=== PATIENT | female | born 1945 | race Caucasian/White ===

== ENCOUNTER 2017-12-25 01:25 | Inpatient (IN) | payer OTHER ==
[~2017-12-25] VITALS: Ht 149.9 cm; Wt 53.8 kg
[2017-12-25] MEDS ORDERED: NEXIUM40 M1 PO (08:49)
[2017-12-25] MEDS ORDERED: RANITIDINE HCL300 M1 PO (08:49)
[2017-12-25] MEDS ORDERED: LOVASTATIN20 M1 PO (08:56)
--- NOTE | 2017-12-25 12:36 | Operative Report ---
Operative/Inv Procedure Report Surgery Date: 12/25/17 Name of Procedure: Right total hip replacement Pre-Operative Diagnosis: Primary right hip DJD Post-Operative Diagnosis: Same Estimated Blood Loss: 250 Surgeon/Forensic Chemist: Ada REYES,Gianluca Moulton Anesthesia: block Operative/Procedure Note Note: Description of Procedure: The patient was taken to the operating room and positively identified. After induction of spinal anesthesia and administration of appropriate pre-operative antibiotics, the patient was positioned supine on the operating room table and all bony prominences were well padded. After performing a surgical timeout, the right lower extremity was prepped and draped in the usual sterile fashion. A direct anterior approach was made to the right hip. The incision was carried sharply through superficial soft tissues to the level of the fascia. Meticulous hemostasis was maintained with Bovie electocautery. The fascia over the tensor fascia era muscle was opened sharply and the interval between the TFL and the sartorius was entered bluntly taking care to stay lateral to the lateral femoral cutaneous nerve. Retractors were placed around the femoral neck and the pericapsular fat was identified. The ascending branches of the lateral femoral circumflex vessels were identified and carefully coagulated. The pericapsular fat and anterior capsule were then resected. A napkin ring osteotomy was performed and the femoral head was removed without difficulty. Attention was then turned to the acetabulum. After appropriate placement of retractors, the acetabulum was exposed. Soft tissue was cleaned from the acetabular margin and notch. Overhanging osteophytes were removed and the teardrop was exposed. The acetabulum was then sequentially reamed to accept a 50 mm Rosamaria Tritanium hemispherical solid shell. This was impacted into place in the appropriate position and fitted with a 32 mm Trident X3 zero degree polyethylene insert. Attention was then turned to the femur. After performing the appropriate ligament releases, the proximal femur was exposed. It was then sequentially broached to accept a size 3 [place] Accolade II stem. This was trialed for leg length and stability. The trial component was removed and the final component was impacted into place. The trunnion was carefully cleaned and fit with a 32mm , +0 Biolox delta ceramic femoral head. The hip was reduced and put through a full range of motion and found to be stable. The articular space was then irrigated with sterile saline. The periarticular soft tissues were infilitrated with Marcaine. The fascial layer was closed with interrupted #1 vicryl suture and the skin was re-approximated with interrupted 2 -0 vicryl. The skin was closed with a running 3-0 V-Lock suture. Steri-strips and a sterile dressing were applied. The patient was awakened and taken to the recovery room in satisfactory condition.
[2017-12-25] MEDS ORDERED: DILAUDID2 M1 PO (13:32)
[2017-12-25] MEDS ORDERED: MS CONTIN15 M3 PO (13:32)
[2017-12-25] MEDS ORDERED: COLACE100 M1 PO (13:32)
[2017-12-25] MEDS ORDERED: ASPIRIN EC325 M2 PO (13:32)
[2017-12-25] MEDS ORDERED: MIRALAX17 G1 PO (13:32)
--- NOTE | 2017-12-25 13:37 | Patient Discharge Instructions ---
Discharge Instructions General Discharge Information You were seen/treated for: Right hip pain related to unilateral primary osteoarthritis You had these procedures: Right total hip replacement Watch for these problems: Increasing pain despite the use of pain medication Increasing redness, warmth or swelling Drainage of any type from incision Inability to bear weight on operative leg Persistent nausea and vomiting Fever greater than 101.5 degrees Do not soak the wound: Yes No bath, but you may shower: Yes Other wound care: Please keep wound clean and dry. No ointments or lotions of any type on or near incision at any time. No exceptions. Your dressing will be changed by your nurse on the second day after your surgery. Daily dry dressing changes are recommended each day thereafter. Do not soak your wound in a bath at any time until otherwise indicated by your surgeon. You may shower, please dry wound immediately after shower with a clean towel. Special Instructions: Aspirin: You are taking this medication to help prevent blood clot formation. Please take with food to protect your stomach lining. Please take as directed. Constipation: Pain medication can cause constipation. Dr. Caballero has recommended that you take Colace and miralax each day. You may discontinue this medication if you develop loose stool or diarrhea. If you wish to continue this medication, it is available over the counter. If you are unable to move your bowels after several days, if you are unable to pass gas and are developing bloating, nausea, or vomiting as a result, please contact your doctor. Diet Continue normal diet: Yes Recommended Diet: Regular Activity Full Activity/No Limits: No Activity Self Limited: Yes Pounds, do NOT lift more than: 10 Acute Coronary Syndrome Inclusion Criteria At DC or during hospital stay patient has or had the following: ACS DIAGNOSIS No Discharge Core Measures Meds if any: Prescribed or Continued at Discharge Meds if any: NOT Prescribed or Continued at Discharge Congestive Heart Failure Inclusion Criteria At DC or during hospital stay patient has or had the following: CHF DIAGNOSIS No Discharge Core Measures Meds if any: Prescribed or Continued at Discharge Meds if any: NOT Prescribed or Continued at Discharge Cerebrovascular accident Inclusion Criteria At DC or during hospital stay patient has or had the following: CVA/TIA Diagnosis No Discharge Core Measures Meds if any: Prescribed or Continued at Discharge Meds if any: NOT Prescribed or Continued at Discharge Venous thromboembolism Inclusion Criteria VTE Diagnosis No VTE Type NONE VTE Confirmed by (Test) NONE Discharge Core Measures - Per Current guidelines, there needs to be overlap - treatment for the first 5 days of Warfarin therapy. - If discharged on Warfarin prior to 5 days of - overlap therapy, the patient will need to be - assessed for post discharge needs including - *Post discharge parental anticoagulation - *Warfarin and/or parental anticoagulation education - *Follow up date to check INR post discharge At least 5 days overlap therapy as Inpatient No Meds if any: Prescribed or Continued at Discharge Note: Overlap Therapy is Warfarin and Anticoagulant Meds if any: NOT Prescribed or Continued at Discharge
--- NOTE | 2017-12-25 13:38 | Admission Core Measures ---
Acute Coronary Syndrome (CM) ACS Core Measures Acute Coronary Syndrome Diagnosis No Congestive Heart Failure (NEW) CHF Core Measures Congestive Heart Failure Diagnosis No Cerebrovascular Accident (NEW) CVA Core Measures CVA/TIA Diagnosis No Venous Thromboembolism VTE Core Beth (View Protocol) VTE Risk Factors Surgery No Mechanical VTE Prophylaxis d/t N/A MechProphylax Ordered No VTE Pharm Prophylaxis d/t NA PharmProphylax ordered Problem List As ranked by this Provider includes Assessment & Plan 1. Unilateral primary osteoarthritis, right hip HOME MEDS Home Med List Aspirin (Ecotrin*) 325 MG TABLET.DR 1 TAB PO BID ANTICOAGULATION Docusate Sodium (Colace) 100 MG CAPSULE 1 CAP PO BID CONSITPATION Esomeprazole (Nexium) 40 MG CAPSULE.DR 1 CAP PO DAILY GERD (Reported) Hydromorphone HCl (Dilaudid) 2 MG TABLET 1-2 TAB PO Q4-6 PRN PRN PAIN Lovastatin 20 MG TABLET 1 CAP PO DAILY HEART HEALTH (Reported) Morphine Sulfate (Ms Contin) 15 MG TABLET.ER 1 TAB PO BID PAIN Polyethylene Glycol 3350 (Miralax) 17 GRAM POWD.PACK 1 PAC PO DAILY CONSTIPATION Ranitidine HCl 300 MG TABLET 1 300MG PO BEDTIME GERD (Reported)
--- NOTE | 2017-12-25 13:40 | Surgical Discharge Summary ---
Visit Information Visit Dates Admission Date: 12/25/17 Discharge Date: 12/25/17 History of Present Illness Chief Complaint: Right hip pain related to unilateral primary osteoarthritis Medical History Isolation History: Standard Surgical History Pertinent Surgical History: non-contributory Review of Systems: See H&P Hospital Course Course Attending Physician: Gianluca Caballero MD Primary Care Physician: Evita Mathew MD Hospital Course: Patient was admitted to the hospital for an elective total joint replacement. The procedure was tolerated well and patient was transferred to a general surgical floor. Diet was advanced and tolerated, and the patient voided spontaneously. The patient was evaluated and treated by physical therapy. At the time of hospital discharge, the vital signs were stable, neurovascular status was intact, and pain was controlled with the use of oral pain medications. Allergies: Coded Allergies: No Known Allergies (12/24/17) Disposition Summary Disposition Principal Diagnosis: Unilateral primary osteoarthritis right hip Additional Diagnosis: None Discharge Disposition: home health services Discharge Instructions General Discharge Information Code Status: Full Code Patient's Diet: Regular, advance as tolerated Patient's Activity: WBAT Follow-Up Instructions/Appts: Follow up with Dr. Caballero in 6 weeks from date of surgery. Please call his office to arrange and/or confirm this appointment. Medications at Discharge Discharge Medications: Continue taking these medications: Ranitidine HCl (Ranitidine HCl) 300 MG TABLET 1 300MG ORAL BEDTIME Esomeprazole (Nexium) 40 MG CAPSULE.DR 1 Capsule ORAL DAILY Lovastatin (Lovastatin) 20 MG TABLET 1 Capsule ORAL DAILY Start taking the following new medications: Aspirin (Ecotrin*) 325 MG TABLET.DR 1 Tablet ORAL TWICE DAILY Qty = 60 No Refills Docusate Sodium (Colace) 100 MG CAPSULE 1 Capsule ORAL TWICE DAILY Qty = 14 No Refills Instructions: DISCONTINUE USE IF YOU DEVELOP LOOSE STOOL OR DIARRHEA Polyethylene Glycol 3350 (Miralax) 17 GRAM POWD.PACK 1 Packet ORAL DAILY Qty = 7 No Refills Instructions: dissolve in water, DISCONTINUE USE IF YOU DEVELOP LOOSE STOOL OR DIARRHEA Hydromorphone HCl (Dilaudid) 2 MG TABLET 1-2 Tablet ORAL EVERY 4-6 HOURS NEEDED as needed for PAIN Qty = 36 No Refills Morphine Sulfate (Ms Contin) 15 MG TABLET.ER 1 Tablet ORAL TWICE DAILY Qty = 4 No Refills
--- NOTE | 2017-12-25 14:39 | RADIOLOGY REPORT ---
EXAMINATION: XR HIP, RIGHT CLINICAL INFORMATION: Status post hip replacement, in PACU COMPARISON: None TECHNIQUE: Two views of the right hip. FINDINGS: Prosthetic components of the right total hip arthroplasty are appropriately aligned. No periprosthetic fracture. Gas from recent surgery is present in the surrounding soft tissues. IMPRESSION: Normal postoperative appearance of the right total hip prosthesis.
[2017-12-25 15:00] VITALS: BP 112/72
--- NOTE | 2017-12-25 15:41 | PN- Orthopedic ---
Subjective Subjective: Patient reports parasthesias in her lower extremties. Denies pain or numbness. Has not ambulated with PT yet due to parathesias. Denies voiding. Tolerating a reg diet without nausea or vomiting. Eager to go home tonight. Objective Vital Signs and I&Os Afebrile, BP 122/72, pulse 65, resp rate 18, O2 sat 92 on RA Physical Exam: Gen - resting comfortably eating soup in nad Cardiac - s1s2 noted, RRR Lungs - CTAB Ext - RLE dressing c/d/i, mild swelling, appropriately tender, moves all extremities, compartment soft, pulses present, decreased motor/sensory secondary to spinal Current Medications: Current Medications Sig/Coral Start time Last Medication Dose Route Stop Time Status Admin Acetaminophen 1,000 MG Q6 12/25 1800 AC IV 12/26 1201 Acetaminophen 0 .STK-MED ONE 12/25 0950 DC PO Aspirin 325 MG BID 12/25 2200 AC PO Atorvastatin Calcium 5 MG 1700 12/25 1700 AC PO Cefazolin Sodium 2 GM IQ8 12/25 1600 AC N/A 1 UNIT IV 12/26 0029 Cefazolin Sodium 2,000 MG ONCE 12/25 0000 DC IV 12/25 2359 Dextrose/Sodium 1,000 ML .[id number] 12/25 1445 AC Chloride IV Docusate Sodium 100 MG BID 12/25 2200 AC PO Famotidine 40 MG QPM 12/25 2200 AC PO Fentanyl Citrate 100 MCG .STK-MED ONE 12/25 0714 DC IM 12/25 0715 Hydromorphone HCl 2 MG Q4P PRN 12/25 1445 AC PO Hydromorphone HCl 4 MG Q4P PRN 12/25 1445 AC PO Midazolam HCl 4 MG .STK-MED ONE 12/25 0714 DC IM 12/25 0715 Morphine Sulfate 2 MG Q2P PRN 12/25 1445 AC IV Omeprazole 40 MG DAILY AC 12/26 0700 AC PO Ondansetron HCl 4 MG Q6P PRN 12/25 1445 AC IV Oxycodone HCl 0 .STK-MED ONE 12/25 0949 DC PO Polyethylene Glycol 17 GM DAILY 12/26 1000 AC PO Promethazine HCl 12.5 MG Q6P PRN 12/25 1445 AC IV 01/01 1329 Tranexamic Acid 2,000 MG .STK-MED ONE 12/25 0714 DC IV 12/25 0715 Assessment/Plan Assessment/Plan 72 F with a h/o HLD and GERD who is POD 0 s/p R THR, with residual parasthesias due to spinal, awaiting PT eval and postop void Reg diet, IVF Postop abx - ancef x2 Pain regimen, ice prn PT eval, WBAT DVT ppx - teds/alps, asa 325 starting tonight Home med on board Bowel regimen on board D/c meds/instructions explained in detail Anticipate d/c tonight pending postop void and PT clearance Core Measures Venous Thromboembolism VTE Risk Factors Surgery No Mechanical VTE Prophylaxis d/t N/A MechProphylax Ordered No VTE Pharm Prophylaxis d/t NA PharmProphylax ordered
== END 2017-12-25 18:24 | disposition home health service (06) | DRG 470 ==
LOC: SDA 01:25 → ENRESERV 13:57 → ENTRNSPT 14:26 → EDTRNSPTSTS 14:34 → 2NA 14:35 → CMPTRNSPT 14:44 → ENTRNSPT 17:59 → CMPTRNSPT 18:22 → 2NA 18:24
PROC: 0SR904A Replacement of Right Hip Joint with Ceramic on Polyethylene Synthetic Substitute, Uncemented, Open Approach (ICD-10-PCS; principal; 2017-12-25)
DX: M16.11 Unilateral primary osteoarthritis, right hip (principal); K21.9 Gastro-esophageal reflux disease without esophagitis; Z90.49 Acquired absence of other specified parts of digestive tract; Z79.82 Long term (current) use of aspirin; Z79.891 Long term (current) use of opiate analgesic; Z88.0 Allergy status to penicillin
CPT/HCPCS: 2NASP; 73502-RT; 97116-GO; 97161-GP; J0131; J0690; J0735; J2405; J2550; J3490; J7042